=== PATIENT | male | born 1960 | race Caucasian/White ===

== ENCOUNTER 2017-04-24 03:46 | Inpatient (IN) | payer OTHER ==
[~2017-04-24] VITALS: Ht 165.1 cm; Wt 89.8 kg
[2017-04-24 04:20] VITALS: BP_SYST 148
[2017-04-24] MEDS ORDERED: NACL 0.9% 1,000 ML IV ONE (04:32)
[2017-04-24] MEDS ORDERED: ONDANSETRON HCL 4 MG/2 ML VIAL IVP ONE (04:45)
[2017-04-24] MEDS ORDERED: KETOROLAC TROMETHAMINE 30 MG VIAL IVP ONE (04:45)
[2017-04-24 05:02] LABS: BASOPHILS # (AUTO) 0.1 K/uL (0.0-0.2); BASOPHILS % (AUTO) 0.6 % (0.0-2.0); EOSINOPHILS % (AUTO) 0.3 % (0.0-4.0); HEMATOCRIT 46.2 % (36-54); HEMOGLOBIN 15.5 g/dL (14.0-18.0); LYMPHOCYTES # (AUTO) 1.2 K/uL (1.0-5.5); LYMPHOCYTES % (AUTO) 8.4 % (20.5-51.5); MEAN CORPUSCULAR HEMOGLOBIN 30 pg (27-31); MEAN CORPUSCULAR HGB CONC 34 % (32-36); MEAN CORPUSCULAR VOLUME 88 fL (79.0-98.0); MONOCYTES # (AUTO) 0.5 K/uL (0.0-1.0); MONOCYTES % (AUTO) 3.2 % (1.7-9.3); NEUTROPHILS # (AUTO) 12.9 K/uL (1.8-7.7); NEUTROPHILS % (AUTO) 87.5 % (40.0-70.0); PLATELET COUNT (AUTO) 429 K/uL (130-430); RED BLOOD CELL COUNT(AUTO) 5.23 MIL/uL (4.2-6.2); RED CELL DISTRIBUTION WIDTH 11.8 % (9.0-15.0); WHITE BLOOD COUNT (AUTO) 14.8 K/uL (4.8-10.8)
[2017-04-24 05:03] LABS: CREATININE 1.24 mg/dL (0.55-1.30); POTASSIUM 3.8 mmol/L (3.5-5.1)
[2017-04-24 05:09] LABS: ALBUMIN 4.1 g/dL (3.4-4.8); TOTAL BILIRUBIN 1.1 mg/dL (0.0-1.0)
[2017-04-24 05:25] LABS: BILIRUBIN,URINE 1+ (NEGATIVE); BLOOD, URINE 3+ (NEGATIVE); CLARITY/URINE HAZY (CLEAR); COLOR,URINE YELLOW (YELLOW); GLUCOSE,URINE NEGATIVE (NEGATIVE); KETONES,URINE 3+ (NEGATIVE); LEUKOCYTE ESTERASE ,URINE TRACE (NEGATIVE); NITRITE, URINE NEGATIVE (NEGATIVE); PH,URINE 5.5 (5.0-8.0); PROTEIN URINE 1+ (NEGATIVE); UROBILINOGEN,URINE 0.2 (0.2-1.0)
[2017-04-24 05:27] LABS: BACTERIA,URINE FEW /HPF (None Seen); MUCUS,URINE 1+ /LPF (None Seen); RBC,URINE 80-100 /HPF (0-3)
[2017-04-24] MEDS ORDERED: LEVOFLOXACIN 500 MG/D5W 100 ML IV ONE (05:45)
[2017-04-24] MEDS ORDERED: KETOROLAC TROMETHAMINE 15 MG VIAL IVP PRN (06:45)
[2017-04-24] MEDS ORDERED: ONDANSETRON HCL 4 MG/2 ML VIAL IVP PRN (06:45)
[2017-04-24 07:28] VITALS: BP_SYST 133
[2017-04-24 08:50] VITALS: BP_SYST 124
[2017-04-24] MEDS ORDERED: TAMSULOSIN HCL 0.4 MG CAP PO SCH (09:00)
[2017-04-24 12:00] VITALS: BP_SYST 116
[2017-04-24 14:24] VITALS: BP_SYST 116
[2017-04-24] MEDS ORDERED: TAMS0.4C96 PO (14:28)
[2017-04-24] MEDS ORDERED: TRAM50TA92 PO (14:29)
[2017-04-24] MEDS ORDERED: CEPH-568 PO (14:29)
== END 2017-04-24 14:45 | disposition home or self-care (01) | DRG 694 ==
LOC: SED 03:46 → SMU 06:35
PROVIDERS: ADMIT Internal Medicine; ATTEND Internal Medicine
DX: N13.2 Hydronephrosis with renal and ureteral calculous obstruction (principal); E66.9 Obesity, unspecified; K40.90 Unilateral inguinal hernia, without obstruction or gangrene, not specified as recurrent; Z68.32 Body mass index [BMI] 32.0-32.9, adult
CPT/HCPCS: 36415; 80053; 81000-TC; 85025; 96361; 96365; 96375; 99285; J1885; J1956; J2405; J7030

== ENCOUNTER 2017-05-25 10:21 | Emergency (ER) | payer OTHER ==
[~2017-05-25] VITALS: Ht 170.2 cm; Wt 89.4 kg
[~2017-05-25 10:21] MED LIST: CEPH-568 PO; TAMS0.4C96 PO; TRAM50TA92 PO
[2017-05-25 10:30] VITALS: BP_SYST 160
--- NOTE | 2017-05-25 10:33 | NUR ---
Patient triaged and placed in waiting room. VSS and patient appears in no acute distress at this time. Accompanied by SELF, awaiting available bed, and MD notified of need for MSE.
--- NOTE | 2017-05-25 10:44 | NUR ---
Patient to ER bed 08 to gown for evaluation. Side rails up.
--- NOTE | 2017-05-25 10:44 | NUR ---
Pt report received from MIS Palomares. Pt c/o Right flank pain since this AM. States stent placement to Right kidney was placed on 04/23, then removed on 05/16. Denies hematuria, hesitancy, or burning.
[2017-05-25 11:41] LABS: BASOPHILS % (AUTO) 0.4 % (0.0-2.0); EOSINOPHILS # (AUTO) 0.1 K/uL (0.0-0.4); EOSINOPHILS % (AUTO) 0.8 % (0.0-4.0); HEMATOCRIT 44.8 % (36-54); HEMOGLOBIN 14.8 g/dL (14.0-18.0); LYMPHOCYTES # (AUTO) 1.2 K/uL (1.0-5.5); LYMPHOCYTES % (AUTO) 12.2 % (20.5-51.5); MEAN CORPUSCULAR HEMOGLOBIN 29 pg (27-31); MEAN CORPUSCULAR HGB CONC 33 % (32-36); MEAN CORPUSCULAR VOLUME 89 fL (79.0-98.0); MONOCYTES # (AUTO) 0.5 K/uL (0.0-1.0); MONOCYTES % (AUTO) 4.5 % (1.7-9.3); NEUTROPHILS # (AUTO) 8.4 K/uL (1.8-7.7); NEUTROPHILS % (AUTO) 82.1 % (40.0-70.0); PLATELET COUNT (AUTO) 423 K/uL (130-430); RED BLOOD CELL COUNT(AUTO) 5.03 MIL/uL (4.2-6.2); RED CELL DISTRIBUTION WIDTH 11.3 % (9.0-15.0); WHITE BLOOD COUNT (AUTO) 10.2 K/uL (4.8-10.8)
[2017-05-25 11:48] LABS: CALCIUM 9.2 mg/dL (8.4-11.0); CREATININE 0.92 mg/dL (0.55-1.30); POTASSIUM 3.9 mmol/L (3.5-5.1)
--- NOTE | 2017-05-25 12:00 | NUR ---
Dr. Coley (urologist) at bedside for evaluation
[2017-05-25 12:10] LABS: BILIRUBIN,URINE NEGATIVE (NEGATIVE); BLOOD, URINE 3+ (NEGATIVE); CLARITY/URINE CLEAR (CLEAR); COLOR,URINE YELLOW (YELLOW); GLUCOSE,URINE NEGATIVE (NEGATIVE); KETONES,URINE 2+ (NEGATIVE); LEUKOCYTE ESTERASE ,URINE 1+ (NEGATIVE); NITRITE, URINE NEGATIVE (NEGATIVE); PROTEIN URINE 1+ (NEGATIVE); UROBILINOGEN,URINE 0.2 (0.2-1.0)
[2017-05-25 12:20] VITALS: BP_SYST 156
--- NOTE | 2017-05-25 12:20 | NUR ---
Patient given written and verbal discharge instructions and verbalizes understanding. ER MD discussed with patient the results and treatment provided. Patient in stable condition. ID arm band removed. Rx of norco given. Patient educated on pain management and to follow up with PMD. Pain Scale 3/10. Opportunity for questions provided and answered.
[2017-05-25 12:27] LABS: BACTERIA,URINE FEW /HPF (None Seen); MUCUS,URINE None Seen /LPF (None Seen); RBC,URINE >100 /HPF (0-3); WBC,URINE 0-3 /HPF (0-3)
== END 2017-05-25 12:20 | disposition home or self-care (01) ==
LOC: SED 10:21
DX: N20.2 Calculus of kidney with calculus of ureter (principal); Z87.442 Personal history of urinary calculi
CPT/HCPCS: 36415; 80048; 81000-TC; 85025; 99285

== ENCOUNTER 2022-07-20 08:37 | Emergency (ER) | payer OTHER ==
[~2022-07-20] VITALS: Ht 170.2 cm; Wt 83.9 kg
[2022-07-20 08:37] VITALS: BP_SYST 126
[2022-07-20 09:18] LABS: BASOPHILS # (AUTO) 0.1 K/uL (0.0-0.2); BASOPHILS % (AUTO) 0.8 % (0.0-2.0); EOSINOPHILS # (AUTO) 0.1 K/uL (0.0-0.4); EOSINOPHILS % (AUTO) 1.1 % (0.0-4.0); HEMATOCRIT 46.6 % (36-54); HEMOGLOBIN 15.9 g/dL (14.0-18.0); LYMPHOCYTES # (AUTO) 0.9 K/uL (1.0-5.5); MEAN CORPUSCULAR HEMOGLOBIN 30 pg (27-31); MEAN CORPUSCULAR HGB CONC 34 % (32-36); MEAN CORPUSCULAR VOLUME 89 fL (79.0-98.0); MONOCYTES # (AUTO) 0.3 K/uL (0.0-1.0); MONOCYTES % (AUTO) 4.4 % (1.7-9.3); NEUTROPHILS # (AUTO) 5.1 K/uL (1.8-7.7); NEUTROPHILS % (AUTO) 79.7 % (40.0-70.0); PLATELET COUNT (AUTO) 396 K/uL (130-430); RED BLOOD CELL COUNT(AUTO) 5.24 MIL/uL (4.2-6.2); WHITE BLOOD COUNT (AUTO) 6.4 K/uL (4.8-10.8)
[2022-07-20 09:43] LABS: CALCIUM 9.7 mg/dL (8.4-11.0); CREATININE 0.87 mg/dL (0.55-1.30)
[2022-07-20 09:47] LABS: ALBUMIN 3.9 g/dL (3.4-4.8); C-REACTIVE PROTEIN QUANT 0.2 mg/dL (0-0.5); TOTAL BILIRUBIN 1.1 mg/dL (0.0-1.0)
[2022-07-20] MEDS: HALOPERIDOL LACTATE 5 MG/ML VIAL IM ONE (09:59)
[2022-07-20] MEDS: KETOROLAC TROMETHAMINE 30 MG VIAL IM ONE (09:59)
[2022-07-20] MEDS: ONDANSETRON 4 MG ODT TAB PO ONE (10:00)
--- NOTE | 2022-07-20 10:00 | NUR ---
Pt bib self from home CC urinary todd dislodgement. Pt is aaox4 denies pain denies retention, abdomen is comfortable without distention. Pt states had an infection last Monday and under anesthesia a todd was in place. This AM todd was dislodged with no pain no hematuria. Pt is comfortable requesting water to fill bladder.
--- NOTE | 2022-07-20 10:03 | NUR ---
MD Coley discontinued meds on emar.
[2022-07-20] MEDS ORDERED: TAMS-11 PO (11:58)
--- NOTE | 2022-07-20 12:49 | NUR ---
Pt given fluids, pt not yet with urge to urine. Pt noted difficulty with previous insertion with 8 attempts leading up to surgical anesthesia for procedure. Pt denies pain or discomfort.
--- NOTE | 2022-07-20 13:11 | NUR ---
Patient given written and verbal discharge instructions and verbalizes understanding. ER MD discussed with patient the results and treatment provided. Patient in stable condition. ID arm band removed. IV catheter removed intact and dressing applied, no active bleeding. Rx of FLOMAX given. Patient educated on pain management and to follow up with PMD. Pain Scale 0/10 . Opportunity for questions provided and answered. Medication side effect fact sheet provided.
[2022-07-20 13:45] VITALS: BP_SYST 134
== END 2022-07-20 13:11 | disposition home or self-care (01) ==
LOC: SED 08:37
DX: R33.9 Retention of urine, unspecified (principal); Z79.899 Other long term (current) drug therapy
CPT/HCPCS: 36415; 76376; 80053; 82150; 83690; 85025; 86140; 99284

== ENCOUNTER 2023-02-05 22:41 | Emergency (ER) | payer OTHER ==
[~2023-02-05] VITALS: Ht 170.2 cm; Wt 86.2 kg
[~2023-02-05 22:41] MED LIST changes: +TAMS-11 PO
[2023-02-05 22:55] VITALS: BP_SYST 138
--- NOTE | 2023-02-05 23:20 | NUR ---
Patient to ER bed 06 to gown for evaluation. Side rails up. Report given to MIS KAUR.
[2023-02-05] MEDS ORDERED: MORPHINE 4 MG INJ. 4 MG/ML VIAL IM ONE (23:30)
[2023-02-05 23:40] LABS: BILIRUBIN,URINE NEGATIVE (NEGATIVE); BLOOD, URINE 2+ (NEGATIVE); CLARITY/URINE CLEAR (CLEAR); COLOR,URINE YELLOW (YELLOW); GLUCOSE,URINE NEGATIVE (NEGATIVE); KETONES,URINE 2+ (NEGATIVE); LEUKOCYTE ESTERASE ,URINE NEGATIVE (NEGATIVE); NITRITE, URINE NEGATIVE (NEGATIVE); PROTEIN URINE NEGATIVE (NEGATIVE); UROBILINOGEN,URINE 0.2 (0.2-1.0)
[2023-02-05 23:54] LABS: BACTERIA,URINE RARE /HPF (None Seen); WBC,URINE 0-3 /HPF (0-3)
--- NOTE | 2023-02-06 00:01 | NUR ---
# 18 FR coude Conley catheter with use of sterile technique. Immediate return of 1000 cc yellow urine noted. Bedside drainage bag placed below level of bladder. Urine sample collected and sent to lab. Pt tolerated procedure well.
--- NOTE | 2023-02-06 00:30 | NUR ---
Dr. FOSTER at bedside examining the patient.
--- NOTE | 2023-02-06 00:52 | NUR ---
Patient given written and verbal discharge instructions and verbalizes understanding. ER MD discussed with patient the results and treatment provided. Patient in stable condition. ID arm band removed. NO Rx given. Patient educated on pain management and to follow up with PMD. Pain Scale 0/10. Opportunity for questions provided and answered. Medication side effect fact sheet provided.
[2023-02-06 00:54] VITALS: BP_SYST 124
== END 2023-02-06 00:54 | disposition home or self-care (01) ==
LOC: SED 22:41
DX: R33.9 Retention of urine, unspecified (principal); R39.198 Other difficulties with micturition; R10.30 Lower abdominal pain, unspecified; Z79.899 Other long term (current) drug therapy
CPT/HCPCS: 99284; 81000; 51702; 96372; J2270